=== PATIENT | female | born 1955 | race African-American/Black ===

== ENCOUNTER → 2017-11-16 | Outpatient (CLI) | payer OTHER ==
[~2017-11-16] VITALS: Ht 149.9 cm; Wt 65.3 kg
[~2017-11-16] MED LIST: AMLODIPINE BESY10 MG PO; ASPIR-TRIN325 MG PO; ASPIRIN325 PO; BYSTOLIC10 MG PO; CARDIZEM CD360 MG PO; CLONIDINE PO; COZAAR 50 MG TA50 M2 PO; DETROL LA2 MG PO; GLIPIZIDE XL5 MG PO; GLUCOPHAGE1000 MG PO; GLUCOTROL5 MG PO; IMDUR 30 MG TAB30 M1 PO; LIPITOR 20 MG T20 M1 PO; LOPRESSOR50 PO; METFORMIN HCL500 MG PO; NITROGLYCERIN0.4 MG PO; PLAVIX 75 MG TA75 M1 PO; PLAVIX 75 MG TA75 MG PO; SIMVASTATIN80 MG PO; VALTURNA 300-31 EACH PO
--- NOTE | ~2017-11-16 | CATHLAB ---
Formerly [facility] [address] [place] [address] INVASIVE PROCEDURE REPORT Name: LIBERTY ESCOBEDO Room #: REG CHRISTIANO Salamanca#: [id number] Admission: 11/16/17 Attend Phys: Chris Elizondo Discharge: Date of : 53 Date of Service: 12/05/17 1316 Report #: [id number] THIS REPORT FOR: //name// APPROVED REPORT Patient Details Patient Status: Out-Patient Room #: The patient is a 62 year-old female Event Personnel Chris Kebede Syrup Mixer Assistant, Sarah Rahman Mahmood, Amber Monitor, Mehdi Dickinson RN Procedures Performed Left Heart Cath w/or w/o Coronaries [id number] [facility] Indication Positive stress test, Chest pain Procedure Narrative The Right Groin^ was infiltrated with 1% Lidocaine subcutaneous anesthesia. A PINNACLE 4FR Sheath #[id number] sheath was inserted into the RFA^. Coronary angiography was performed using coronary diagnostic catheters. The right coronary system was accessed and visualized with a JR4 catheter. The left coronary system was accessed and visualized with a JL4 catheter. The left ventricle was accessed and visualized with a PIGTAIL catheter. Left ventricular/Aortic Valve gradient assessed via catheter pullback. Hemostasis was obtained with manual pressure following sheath removal without any complications. The patient tolerated the procedure well and there were no complications associated with the procedure. There was no hematoma. Intraoperative Conscious Sedation Sedation start time: 12.38 Case end Time: 12.56 Versed 2.0 mg Fluoro Time: 2.13 minutes Dose: DAP 1996.00 cGycm2 303 mGy Contrast Type and Amount: Omnipaque 55 ml Coronary Angiography The patient's coronary anatomy is right dominant. Formerly [facility] [address] [place] [address] INVASIVE PROCEDURE REPORT Name: GREGGLIBERTYOswaldo BRISCOE Room #: REG [facility]#: [id number] Admission: 11/16/17 Attend Phys: Chris Elizondo Discharge: Date of : 53 Date of Service: 12/05/17 1316 Report #: [id number] Diagnostic Cath Left Main Normal origin very short length and almost nonexistent. No obstructive lesions noted. LAD Moderate caliber vessel courses in the anterior interventricular ventricular sulcus giving rise to a small less than half a millimeter diameter first diagonal branch which is diffusely diseased. First septal death surveys coder arises in the region of the LAD has 20% eccentric lesion and accentuated by a terminal 30% lesion. The LAD then reconstitutes coursing in the anterior interventricular sulcus is a type III vessel giving rise to numerous septal perforators in its course terminating the posterior inferolateral apical wall Diagonal 1 Small diminutive vessel free of high-grade disease Circumflex Large-caliber vessel coursing posteriorly in the AV groove. It is a trifurcation that gives rise to a first marginal and second marginal vessel which are small to moderate caliber. The course is quite tortuous and serpentigeous with high-grade lesions diffusely in present throughout its course of both branches. The circumflex and continues posteriorly to the posterior wall were small posterior wall branch arises diffusely diseased terminal portion of the circumflex is noted. Right Coronary Moderate caliber vessel normal origin which has several nonobstructive lesions of prior to the acute margin. These are under 30-40%. At the acute margin a small acute marginal branch arises with a high-grade lesion at its origin. The RCA has a least 60% lesion subsequent to this and becomes diffusely diseased with 50-60% lesions identified. Origin of the PDA has a 50% lesion of the PDA continues posteriorly with mild to moderate luminal irregularities but no focal high-grade lesions. The distal RCA has a 85-95% lesion as it courses given Restasis small highly diseased posterior wall branches R PDA Moderate caliber vessel with proximal 50% lesion does not appear to be flow-limiting. It continues in the posterior AV groove was the apex and terminating as a small caliber vessel with mild to moderate luminal irregularities Left Ventriculography Left Ventriculography was not performed. Hemodynamics The aortic pressure is 164/81 mmHg with a mean of 115 mmHg. The left ventricular pressure is 151/9 mmHg with a mean of mmHg. The left ventricular end diastolic pressure is 27 mmHg. Conclusion Formerly [facility] [address] [address] INVASIVE PROCEDURE REPORT Name: LIBERTY ESCOBEDO Room #: REG CHRISTIANO Salamanca#: [id number] Admission: 11/16/17 Attend Phys: Chris Elizondo Discharge: Date of : 53 Date of Service: 12/05/17 1316 Report #: [id number] 1. Coronary artery disease 2 vessel involving diffusely diseased left circumflex and right coronary arteries 2. Normal hemodynamics Recommendations [facility] Medical Therapy <ELECTRONICALLY SIGNED> By: Chris Kebede MD 12/05/171315 15 15 Chris Kebede MD /INF
[2017-11-16 09:49] VITALS: BP 146/84
[2017-11-16 10:02] LABS: HEMATOCRIT 44.5 % (37.0-47.0); HEMOGLOBIN 14.7 gm/dL (12.0-15.0); MCHC 32.9 g/dL (28.0-37.0); RBC 5.86 mil/uL (4.20-5.00); RDW 16.8 % (10.5-14.5); WBC 8.7 thou/uL (4.0-11.0)
[2017-11-16 10:16] LABS: CALCIUM 9.6 mg/dL (8.5-10.1); POTASSIUM 3.6 mmol/L (3.5-5.1)
== END | disposition home or self-care (01) ==
LOC: CATH 07:40
PROVIDERS: Internal Medicine
DX: I25.10 Atherosclerotic heart disease of native coronary artery without angina pectoris (principal)

== ENCOUNTER → 2017-11-20 | Outpatient (CLI) | payer OTHER | LOC: NUC 10:13 | DX: M81.0 Age-related osteoporosis without current pathological fracture (principal); Z78.0 Asymptomatic menopausal state ==

== ENCOUNTER → 2018-02-12 | Outpatient (CLI) | payer OTHER | LOC: RAD 13:04 | DX: Z12.31 Encounter for screening mammogram for malignant neoplasm of breast (principal) ==

== ENCOUNTER → 2019-03-27 | Outpatient (CLI) | payer OTHER | LOC: RAD 14:23 | DX: Z12.31 Encounter for screening mammogram for malignant neoplasm of breast (principal) ==

== ENCOUNTER 2020-01-22 12:27 | Emergency (ER) | payer OTHER ==
[~2020-01-22] VITALS: Ht 149.9 cm; Wt 61.2 kg
[2020-01-22 13:53] LABS: ANION GAP 8 mmol/L (7-16); BUN 20 mg/dL (7-18); CALCIUM 9.4 mg/dL (8.5-10.1); CHLORIDE 103 mmol/L (98-107); CO2 30 mmol/L (21-32); GLUCOSE 220 mg/dL (74-106); POTASSIUM 3.7 mmol/L (3.5-5.1); SODIUM 141 mmol/L (136-145)
[2020-01-22 14:04] LABS: ALBUMIN 3.5 g/dL (3.4-5.0); BASOPHILS 0.7 % (0.0-2.0); EOSINOPHILS 1.3 % (0.0-3.0); HEMATOCRIT 42.9 % (37.0-47.0); MCH 25.3 pg (26.0-34.0); MCHC 32.7 g/dL (28.0-37.0); MCV 77.4 fL (80.0-100.0); MONOCYTES 10.7 % (1.0-8.0); PLATELET COUNT 235 thou/uL (150-400); POLYS 75.3 % (36.0-66.0); RBC 5.54 mil/uL (4.20-5.00); RDW 17.2 % (10.5-14.5); SGOT 13 U/L (15-37); SGPT 9 U/L (30-65); TOTAL BILIRUBIN 0.7 mg/dL (<0.1-1.0); TOTAL PROTEIN 7.6 g/dL (6.4-8.2); TROPONIN-I <0.06 ng/mL (<0.06); WBC 6.6 thou/uL (4.0-11.0)
[2020-01-22] MEDS ORDERED: TESSALON PERLE100 M1 PO (14:38)
[2020-01-22] MEDS ORDERED: HYDROCHLOROTHIA25 M2 PO (14:38)
[2020-01-22 15:03] VITALS: BP 201/90
--- NOTE | 2020-01-22 15:12 | EKG ---
[facility] [address] ELECTROCARDIOGRAM REPORT Name: LIBERTY ESCOBEDO Room #: DEP [facility]#: [id number] Admission: 01/22/20 Attend Phys: Discharge: 01/22/20 Date of : 53 Report #: [id number] THIS REPORT FOR: cc: Louis Rodney Steven F. DO Couchonnal, Luis F. MD ~ THIS REPORT FOR: //name// [facility] ED Test Date: 2020-01-22 Test Time: 13:48:13 Pat Name: LIBERTY ESCOBEDO Department: Room: Gender: Sales Agent Insurance: [place] : [id number] Requested By: Felicitas Carmona Order Number: [id number] MD: Librado Soria Measurements Intervals [place] Rate: 87 P: 83 ME: 150 QRS: 70 QRSD: 74 T: 103 QT: 377 QTc: 454 Interpretive Statements Sinus rhythm Right atrial enlargement Nonspecific T abnormalities, lateral leads Compared to ECG 10/30/2010 16:20:43 Electronically Signed On 01-22-2020 15:11:10 CDT by Librado Soria [email or web address] <ELECTRONICALLY SIGNED> By: Librado Soria MD 01/22/20 1511 1348 1348 Librado Soria MD /EPI
== END 2020-01-22 15:04 | disposition home or self-care (01) ==
LOC: ER 12:27
PROVIDERS: Physician Assistant
DX: R05 Cough (principal); R06.02 Shortness of breath; I10 Essential (primary) hypertension; I73.9 Peripheral vascular disease, unspecified; E11.9 Type 2 diabetes mellitus without complications; E78.00 Pure hypercholesterolemia, unspecified; F17.210 Nicotine dependence, cigarettes, uncomplicated

== ENCOUNTER → 2020-06-24 | Outpatient (CLI) | payer OTHER ==
[~2020-06-24] MED LIST changes: +HYDROCHLOROTHIA25 M2 PO; +TESSALON PERLE100 M1 PO
== END ==
LOC: SJCVC 11:28
PROVIDERS: ATTEND Internal Medicine
DX: R94.31 Abnormal electrocardiogram [ECG] [EKG] (principal); I25.10 Atherosclerotic heart disease of native coronary artery without angina pectoris; I10 Essential (primary) hypertension; E78.5 Hyperlipidemia, unspecified; E11.9 Type 2 diabetes mellitus without complications; I73.9 Peripheral vascular disease, unspecified; F17.210 Nicotine dependence, cigarettes, uncomplicated; Z79.899 Other long term (current) drug therapy

== ENCOUNTER → 2020-07-14 | Outpatient (CLI) | payer OTHER | LOC: SJCVCIMAG 08:13 | PROVIDERS: ATTEND Internal Medicine | DX: I11.9 Hypertensive heart disease without heart failure (principal); I49.3 Ventricular premature depolarization; I25.810 Atherosclerosis of coronary artery bypass graft(s) without angina pectoris; I42.9 Cardiomyopathy, unspecified; E78.00 Pure hypercholesterolemia, unspecified; E11.9 Type 2 diabetes mellitus without complications; F17.200 Nicotine dependence, unspecified, uncomplicated; Z78.0 Asymptomatic menopausal state; Z79.4 Long term (current) use of insulin; Z91.19 Patient's noncompliance with other medical treatment and regimen ==

== ENCOUNTER 2021-03-02 15:23 | Emergency (ER) | payer MEDICARE ==
[~2021-03-02] VITALS: Ht 149.9 cm; Wt 58.1 kg
[2021-03-02] MEDS ORDERED: CLOPIDOGREL75 MG PO (15:46)
[2021-03-02] MEDS ORDERED: LIPITOR 40 MG T40 M1 PO (15:46)
[2021-03-02] MEDS ORDERED: LOSARTAN POTAS100 MG PO (15:46)
[2021-03-02] MEDS ORDERED: METOPROLOL SUCC50 MG PO (15:46)
[2021-03-02 16:01] LABS: ABSOLUTE NEUTROPHILS 2.8 thou/uL (1.4-8.2); ANION GAP 11 mmol/L (7-16); BASOPHILS 0.4 % (0.0-2.0); BUN 28 mg/dL (7-18); CHLORIDE 103 mmol/L (98-107); CO2 29 mmol/L (21-32); CREATININE 1.6 mg/dL (0.6-1.0); EOSINOPHILS 0.5 % (0.0-3.0); GLUCOSE 210 mg/dL (74-106); HEMATOCRIT 40.5 % (37.0-47.0); HEMOGLOBIN 12.9 gm/dL (12.0-15.0); LYMPHOCYTES 32.7 % (24.0-44.0); MCH 23.8 pg (26.0-34.0); MCHC 31.9 g/dL (28.0-37.0); MCV 74.5 fL (80.0-100.0); MONOCYTES 12.4 % (1.0-8.0); PLATELET COUNT 273 thou/uL (150-400); POTASSIUM 3.5 mmol/L (3.5-5.1); RBC 5.43 mil/uL (4.20-5.00); RDW 19.2 % (10.5-14.5); SODIUM 143 mmol/L (136-145); WBC 5.2 thou/uL (4.0-11.0)
[2021-03-02 16:12] LABS: ALBUMIN 3.5 g/dL (3.4-5.0); AMYLASE 75 U/L (25-115); DIRECT BILIRUBIN 0.1 mg/dL (<0.1-0.2); LIPASE 59 U/L (73-393); MAGNESIUM 1.8 mg/dL (1.8-2.4); PHOSPHORUS 2.9 mg/dL (2.5-4.9); SGOT 15 U/L (15-37); SGPT 15 U/L (30-65); TOTAL BILIRUBIN 0.6 mg/dL (0.2-1.0); TOTAL PROTEIN 8.1 g/dL (6.4-8.2); TROPONIN-I <0.06 ng/mL (<0.06)
[2021-03-02] MEDS ORDERED: IMODIUM A-D2 MG PO (16:43)
[2021-03-02] MEDS ORDERED: ZOFRAN ODT4 MG PO (16:43)
[2021-03-02] MEDS ORDERED: BENTYL 10 MG CA10 M1 PO (16:43)
--- NOTE | 2021-03-02 16:46 | EKG ---
[facility] [place] [address] ELECTROCARDIOGRAM REPORT Name: LIBERTY ESCOBEDO [facility] [id number] Admission: 03/02/21 Attend Phys: Discharge: Date of : 53 Report #: [id number] [facility] ED Test Date: 2021-03-02 Test Time: 15:42:35 Pat Name: LIBERTY ESCOBEDO Department: Room: Gender: F Sanitation Engineer: MARGARITA : 1955 Requested By: Alexsander Edmond Order Number: [id number] MD: Sai Medrano Measurements Intervals [place] Rate: 82 P: 80 IA: 148 QRS: 28 QRSD: 132 T: 100 QT: 414 QTc: 484 Interpretive Statements Sinus rhythm Probable left atrial enlargement Left ventricular hypertrophy Anterior Q waves, possibly due to LVH Nonspecific T abnormalities, lateral leads Compared to ECG 01/22/2020 13:48:13 Left ventricular hypertrophy now present Q waves now present T-wave abnormality still present Electronically Signed On 03-02-2021 16:45:44 CDT by aSi Medrano [email or web address] <ELECTRONICALLY SIGNED> By: Sai Medrano MD, [facility] 03/02/21 6683 1542 1542 Sai Medrano MD, [facility] /EPI
[2021-03-02 17:29] VITALS: BP 179/82
== END 2021-03-02 17:30 | disposition home or self-care (01) ==
LOC: ER 15:23
PROVIDERS: Emergency Medicine
DX: U07.1 COVID-19 (principal); E86.0 Dehydration; I10 Essential (primary) hypertension; E11.9 Type 2 diabetes mellitus without complications; E78.5 Hyperlipidemia, unspecified; F17.210 Nicotine dependence, cigarettes, uncomplicated; Z79.899 Other long term (current) drug therapy

== ENCOUNTER → 2021-11-15 | Outpatient (CLI) | payer MEDICARE ==
[~2021-11-15] MED LIST changes: +ASPIRIN EC325 M1 PO; +BENTYL 10 MG CA10 M1 PO; +CLOPIDOGREL75 MG PO; +IMDUR 60 MG TAB60 M1 PO; +IMODIUM A-D2 MG PO; +LANTUS SUBQ; +LIPITOR 40 MG T40 M1 PO; +LOSARTAN POTAS100 MG PO; +METOPROLOL SUCC50 MG PO; +WELLBUTRIN SR150 M1 PO; +ZOFRAN ODT4 MG PO
== END ==
LOC: SJCVC 14:18 → SJCVCIMAG 14:18
PROVIDERS: ATTEND Podiatrist Foot & Ankle Surgery
DX: I70.203 Unspecified atherosclerosis of native arteries of extremities, bilateral legs (principal); I25.10 Atherosclerotic heart disease of native coronary artery without angina pectoris; I10 Essential (primary) hypertension; E78.00 Pure hypercholesterolemia, unspecified; E11.9 Type 2 diabetes mellitus without complications; F17.210 Nicotine dependence, cigarettes, uncomplicated; Z98.890 Other specified postprocedural states; Z79.4 Long term (current) use of insulin; Z79.82 Long term (current) use of aspirin; Z79.84 Long term (current) use of oral hypoglycemic drugs; Z79.899 Other long term (current) drug therapy

== ENCOUNTER → 2021-11-28 | Outpatient (CLI) | payer OTHER ==
[~2021-11-28] VITALS: Ht 147.3 cm; Wt 56.8 kg
--- NOTE | 2021-11-28 14:27 | NUR ---
late entry from 1330 pt returned from labeling specialist without having procedure done d/t severely elevated BP. Medications were administered to lower bp without success. pt educated as to the importance of having a lower bp and the complications that can arise if we proceeded with the procedure despite her elevated bp, pt verbalized understanding and agreed to reschedule. Dr. Kebede asking that about 20 after returning to CV holding to inform him of the pt's bp. Pt is settled in her room and on the monitor. will continue to monitor closely.
--- NOTE | 2021-11-28 14:30 | NUR ---
late entry from 1400: DR. VILLEGAS NOTIFIED NEENA THE PT'S BP OF 174/105, TEDDY HIS RN CALLED AND ASKED THAT PT BE DISCHARGED AND BROUGHT OVER TO THE [facility] TO REARRANGE HER BP MEDS. PT OK WITH THIS PLAN.
== END | disposition home or self-care (01) ==
LOC: CATH 07:49
PROVIDERS: ATTEND Internal Medicine
DX: R07.9 Chest pain, unspecified (principal); Z53.8 Procedure and treatment not carried out for other reasons; I10 Essential (primary) hypertension; E11.9 Type 2 diabetes mellitus without complications; E78.5 Hyperlipidemia, unspecified; I73.9 Peripheral vascular disease, unspecified; F17.210 Nicotine dependence, cigarettes, uncomplicated; Z98.890 Other specified postprocedural states; Z79.899 Other long term (current) drug therapy; Z20.822 Contact with and (suspected) exposure to COVID-19